=== PATIENT | male | born 1950 | race Caucasian/White ===

== ENCOUNTER 2019-07-28 06:51 | Emergency (ER) | payer MEDICARE ==
[2019-07-28 06:57] VITALS: TEMP 97.6
[2019-07-28] MEDS ORDERED: ARICEPT10 MG PO (07:05)
[2019-07-28] MEDS ORDERED: DITROPAN XL10 MG PO (07:06)
[2019-07-28] MEDS ORDERED: CYMBALTA 60MG60 MG PO (07:06)
[2019-07-28] MEDS ORDERED: SINEMET 25/101 UDTAB PO (07:06)
[2019-07-28] MEDS ORDERED: FLOMAX 0.40.4 MG/CAP PO (07:07)
[2019-07-28 10:25] VITALS: BP 130/78; PULSE 62
== END 2019-07-28 10:32 | disposition home or self-care (01) ==
LOC: COL.ER 06:51
DX: S06.0X0A Concussion without loss of consciousness, initial encounter (principal); S62.521A Displaced fracture of distal phalanx of right thumb, initial encounter for closed fracture; S01.01XA Laceration without foreign body of scalp, initial encounter; F03.90 Unspecified dementia, unspecified severity, without behavioral disturbance, psychotic disturbance, mood disturbance, and anxiety; W19.XXXA Unspecified fall, initial encounter; Y92.129 Unspecified place in nursing home as the place of occurrence of the external cause

== ENCOUNTER 2019-09-12 02:50 | Emergency (ER) | payer MEDICARE ==
[~2019-09-12] VITALS: Ht 190.5 cm; Wt 90.9 kg
[~2019-09-12 02:50] MED LIST: ARICEPT10 MG PO; CYMBALTA 60MG60 MG PO; DITROPAN XL10 MG PO; FLOMAX 0.40.4 MG/CAP PO; SINEMET 25/101 UDTAB PO
[2019-09-12 02:52] VITALS: TEMP 99.1
[2019-09-12 03:48] LABS: BASO % 0.5 % (0.0-2.0); EOS # 0.1 (0.0-0.7); EOS % 2.3 % (0-4.0); GRAN % 66.4 % (42.2-75.2); HEMOGLOBIN 13.9 g/dl (13.5-18.0); LYMPH # 1.3 (1.2-3.4); LYMPH % 21.4 % (20.0-51.0); MEAN CELL VOLUME 90 fl (80.0-100.0); MEAN CORPUSCULAR HEMOGLOBIN 30 pg (27.0-31.0); MEAN CORPUSCULAR HGB CONC 33 g/dl (33.0-37.0); MEAN PLATELET VOLUME 10.7 fl (7.4-10.4); MONO # 0.5 (0.1-0.6); MONO % 8.9 % (1.7-9.3); PLATELET COUNT 181 K/mm3 (130-400); RED BLOOD COUNT 4.67 M/mm3 (4.20-5.60); REDCELL DISTRIBUTION WIDTH-CV 13.6 % (11.5-14.5)
[2019-09-12 03:50] LABS: PROTHROMBIN TIME 11.6 SECONDS (9.7-12.8)
[2019-09-12 03:52] LABS: PARTIAL THROMBOPLASTIN TIME 33.5 SECONDS (26.0-37.0)
[2019-09-12 03:56] LABS: ALANINE AMINOTRANSFERASE 7 U/L (4-49); ALBUMIN 3.7 gm/dL (3.5-5.0); ALKALINE PHOSPHATASE 76 U/L (50-136); ANION GAP 6 mmol/L (7-16); AST,SGOT 24 U/L (15-37); BILIRUBIN,TOTAL 0.6 mg/dL (0.0-1.0); BLOOD UREA NITROGEN 26 mg/dL (9-20); CALCIUM 9.2 mg/dL (8.4-10.2); CARBON DIOXIDE 26 mmol/L (22-30); CHLORIDE 107 mmol/L (98-107); CREATINE KINASE 120 U/L (55-170); GLUCOSE 87 mg/dL (74-106); MAGNESIUM 1.9 mg/dL (1.6-2.3); POTASSIUM 3.7 mmol/L (3.4-5.0); SODIUM 139 mmol/L (137-145); TOTAL PROTEIN 6.4 gm/dL (6.4-8.2)
[2019-09-12 03:57] LABS: C-REACTIVE PROTEIN < 0.5 mg/dL (0.0-0.9)
[2019-09-12 04:10] LABS: PROLACTIN 23.1 ng/mL (3.7-17.9)
[2019-09-12 05:39] LABS: COLLECTION METHOD CATHETER
[2019-09-12 05:47] LABS: PH 5 (5-8); SQUAMOUS EPITHELIAL 0-2 /hpf; URINE APPEARANCE Hazy; URINE BACTERIA None Seen /hpf; URINE BILIRUBIN Negative (NEGATIVE); URINE BLOOD 3+ (NEGATIVE); URINE COLOR Yellow; URINE GLUCOSE Negative (NEGATIVE); URINE KETONE Negative (NEGATIVE); URINE LEUKOCYTE ESTERASE Negative (NEGATIVE); URINE NITRATE Negative (NEGATIVE); URINE PROTEIN(semi-quant) 2+ (NEGATIVE); URINE RBC >50 /hpf; URINE UROBILINOGEN Negative (NEGATIVE)
--- NOTE | 2019-09-12 11:22 | NUR ---
Patient is a resident in [facility] (locked dementia assisted living house) at [facility]. Patient exhibited aggression towards staff last evening and was transported to ED for placement in a [facility] facility. chemical research worker gave referrals to [facility], [facility], [facility] [place], and [facility]. Worker contacted patient's DPOA/sister, Brii Arreola, and advised of the above information. Brii verbalized support of the above plan of placement and stated she will inform her brothers, also listed on DPOA. [facility] in [place] accepted patient today, pending Covid result. Patient will transfer via secure transport.
[2019-09-12 11:30] VITALS: BP 131/86; PULSE 99
--- NOTE | 2019-09-12 11:52 | NUR ---
Patient is discharging to [facility] in [place] via [facility] Transport at this time. Courtney brought patient's belongings to the hospital. Worker contacted DPOA/sister, and advised of the above information.
== END 2019-09-12 11:43 ==
LOC: COL.ER 02:50
PROVIDERS: Emergency Medicine
DX: R45.1 Restlessness and agitation (principal); F03.90 Unspecified dementia, unspecified severity, without behavioral disturbance, psychotic disturbance, mood disturbance, and anxiety; G20 Parkinson's disease; N40.0 Benign prostatic hyperplasia without lower urinary tract symptoms; Z20.828 Contact with and (suspected) exposure to other viral communicable diseases; Z88.2 Allergy status to sulfonamides; Z88.6 Allergy status to analgesic agent; Z96.82 Presence of neurostimulator
CPT/HCPCS: J1630; J2060